=== PATIENT | female | born 1980 | race Two or more races ===

== ENCOUNTER 2019-03-04 08:39 | Outpatient (CLI) | payer OTHER | END 2019-03-04 09:28 | disposition home or self-care (01) | LOC: SONOGRAMA 08:39 | DX: E04.8 Other specified nontoxic goiter (principal) ==

== ENCOUNTER 2024-06-20 10:31 | Outpatient (CLI) | payer OTHER | END 2024-06-20 10:36 | disposition home or self-care (01) | LOC: SONOGRAMA 10:31 | PROVIDERS: ATTEND Pathology Anatomic Pathology & Clinical Pathology | DX: E04.8 Other specified nontoxic goiter (principal); D34 Benign neoplasm of thyroid gland; E07.89 Other specified disorders of thyroid ==